=== PATIENT | female | born 1990 | race Hispanic/Latino ===

== ENCOUNTER 2021-09-13 15:48 | Inpatient (IN) | payer MEDICAID, OTHER, SELFPAY ==
[2021-09-15] MEDS ORDERED: Bupivacaine 0.25% HCL 30 ML VIAL ONE (07:00)
[2021-09-15] MEDS: Lactated Ringer's 1,000 ML IV SCH (10:20)
[2021-09-15] MEDS ORDERED: Ibuprofen 800 MG TAB PO PRN (10:28)
[2021-09-15] MEDS ORDERED: Methylergonovine 0.2 MG/ML VIAL IM PRN (10:28)
[2021-09-15] MEDS ORDERED: Acetaminophen 500 MG TAB PO PRN (10:28)
[2021-09-15] MEDS ORDERED: Butorphanol Tartrate 1 MG/ML VIAL SLOW IVP PRN (10:28)
[2021-09-15] MEDS ORDERED: hydrALAZINE 20 MG/ML VIAL SLOW IVP PRN (10:28)
[2021-09-15] MEDS ORDERED: Diphenoxylate HCl/Atropine Tablet PO PRN (10:28)
[2021-09-15] MEDS ORDERED: Misoprostol 200 MCG TAB PR PRN (10:28)
[2021-09-15] MEDS ORDERED: NS w/ Oxytocin 30 units 500 ML IV SCH ×2 (10:28)
[2021-09-15] MEDS ORDERED: HYDROcodone/Acetaminophen 5/325 mg Tablet PO PRN (10:28)
[2021-09-15] MEDS ORDERED: Lidocaine 1% (PF) 30 ML VIAL SC PRN (10:28)
[2021-09-15] MEDS ORDERED: Carboprost 250 MCG/ML AMP IM PRN (10:28)
[2021-09-15] MEDS ORDERED: Ondansetron PF 4 MG/2 ML Vial IVP PRN ×2 (10:28→19:19)
[2021-09-15] MEDS ORDERED: Promethazine HCl 25 MG/ML VIAL IM PRN ×2 (10:28→19:19)
[2021-09-15] MEDS: Misoprostol 100 MCG TAB PO SCH (10:53)
[2021-09-15 11:01] LABS: Hemoglobin 13.1 g/dL (12.0-15.5); Mean Corpuscular HGB CONC 34.6 g/dL (32.0-36.0); Mean Corpuscular Hemoglobin 30.2 pg (27.0-33.0); Mean Corpuscular Volume 87.3 fl (81.6-98.3); Mean Platelet Volume 10.2 fl (7.4-10.4); Platelet Count 185 10x3/uL (150-450); RBC Distribution Width 13.6 % (11.5-14.5); Red Blood Cell (RBC) Count 4.34 10x6/uL (3.90-5.03); White Blood Cell (WBC) Count 7.4 10x3/uL (3.5-10.5)
[2021-09-15 11:33] LABS: Hep B Surf Ag Non-Reactive S/CO (NonReactive); Syphilis Antibody Nonreactive (Nonreactive)
[2021-09-15 11:36] LABS: HBSAg Index 0.19 S/CO (0-0.99)
[2021-09-15 13:16] LABS: SARS-CoV-2 NAA Rapid Test Not Detected (NotDetected)
[2021-09-15] MEDS ORDERED: Fentanyl 2 mcg/Bup 0.1% Cadd 100 ML ONE (17:05)
[2021-09-15 19:04] VITALS: BMI 28.9
[2021-09-15] MEDS ORDERED: ePHEDrine Sulfate 50 MG/10 ML VIAL SLOW IVP PRN (19:19)
[2021-09-15] MEDS ORDERED: Moisturizing Cream (Eucerin) 113 GM JAR TOP PRN (19:19)
[2021-09-15] MEDS ORDERED: Naloxone HCl 0.4 mg/ml Vial IVP PRN ×2 (19:19)
[2021-09-15] MEDS ORDERED: Acetaminophen 325 MG TAB PO PRN (19:19)
[2021-09-15] MEDS ORDERED: diphenhydrAMINE 50 MG/ML VIAL IVP PRN (19:19)
[2021-09-15] MEDS ORDERED: Fentanyl 2 mcg/Bupivacaine 0.1% Cassette 100 ML EPIDURAL SCH (19:30)
[2021-09-15] MEDS ORDERED: Communication Order-Pharmacy FS SCH (19:30)
[2021-09-15] MEDS ORDERED: Lactated Ringer's 500 ML IV PRN (19:31)
[2021-09-16] MEDS ORDERED: Milk Of Magnesia 30 ML UDCUP PO PRN (02:00)
[2021-09-16] MEDS ORDERED: Promethazine HCl 25 MG/ML VIAL IM PRN (02:00)
[2021-09-16] MEDS ORDERED: HYDROcodone/Acetaminophen 5/325 mg Tablet PO PRN (02:00)
[2021-09-16] MEDS ORDERED: Bisacodyl 10 MG SUPP PR PRN (02:00)
[2021-09-16] MEDS ORDERED: Lanolin Ointment 7 GM TUBE TOP PRN (02:00)
[2021-09-16] MEDS ORDERED: diphenhydrAMINE 25 MG CAP PO PRN (02:00)
[2021-09-16] MEDS ORDERED: NS w/ Oxytocin 30 units 500 ML IV SCH (02:00)
[2021-09-16] MEDS ORDERED: Boostrix 0.5 ML (Tdap) VIAL IM ONE (02:00)
[2021-09-16] MEDS ORDERED: hydrALAZINE 20 MG/ML VIAL SLOW IVP PRN (02:00)
[2021-09-16] MEDS ORDERED: Benzocaine-Menthol 82.5 ML CAN TOP PRN (02:00)
[2021-09-16] MEDS ORDERED: Ondansetron PF 4 MG/2 ML Vial IVP PRN (02:00)
[2021-09-16] MEDS: Ibuprofen 800 MG TAB PO SCH ×3 (05:38→21:11)
[2021-09-16] MEDS: Lactated Ringer's 1,000 ML IV SCH (07:38)
[2021-09-16] MEDS: Misoprostol 100 MCG TAB PO SCH (07:38)
[2021-09-16] MEDS: Ferrous Sulfate 325 MG TAB PO SCH ×2 (08:56→16:40)
[2021-09-16] MEDS: Prenatal Vitamin 1 TAB PO SCH (09:11)
[2021-09-16] MEDS: Docusate 100 MG CAP PO SCH ×2 (09:11→21:12)
[2021-09-17] MEDS: Ibuprofen 800 MG TAB PO SCH ×2 (05:17→14:10)
[2021-09-17] MEDS: Ferrous Sulfate 325 MG TAB PO SCH ×2 (07:38→15:54)
[2021-09-17 07:53] VITALS: BP 103/62; TEMP 98
[2021-09-17] MEDS: Prenatal Vitamin 1 TAB PO SCH (08:31)
[2021-09-17] MEDS: Docusate 100 MG CAP PO SCH (08:31)
== END 2021-09-17 17:15 | disposition home or self-care (01) | DRG 807 ==
LOC: CSHLD 09-15 09:20 → CSHPP 09-16 02:19
PROVIDERS: ADMIT Family Medicine; ATTEND Family Medicine
PROC: 10E0XZZ Delivery of Products of Conception, External Approach (ICD-10-PCS; principal; 2021-09-15)
PROC: 10907ZC Drainage of Amniotic Fluid, Therapeutic from Products of Conception, Via Natural or Artificial Opening (ICD-10-PCS; 2021-09-15)
PROC: 3E0P7VZ Introduction of Hormone into Female Reproductive, Via Natural or Artificial Opening (ICD-10-PCS; 2021-09-15)
DX: O80 Encounter for full-term uncomplicated delivery (principal); Z37.0 Single live birth; Z20.822 Contact with and (suspected) exposure to COVID-19; Z3A.39 39 weeks gestation of pregnancy
CPT/HCPCS: 51702; 85027; 86780; 86850; 86900; 86901; 87340; J2590; J7120; S0020; U0002

== ENCOUNTER 2023-08-15 10:28 | Outpatient (CLI) | payer OTHER | END 2023-08-15 10:29 | disposition home or self-care (01) | LOC: CSHULT 10:28 | PROVIDERS: ATTEND Family Medicine | DX: Z34.82 Encounter for supervision of other normal pregnancy, second trimester (principal); Z3A.21 21 weeks gestation of pregnancy | CPT/HCPCS: 76805 ==

== ENCOUNTER 2023-12-12 20:40 | Inpatient (IN) | payer OTHER ==
[~2023-12-12 20:40] MED LIST: Bupivacaine/Epinephrine 0.25% 30 ML VIAL ONE
[2023-12-12 21:45] VITALS: BMI 28.8
[2023-12-12] MEDS ORDERED: Oxytocin 30 units/NS 500 ML 500 ML IV SCH ×2 (22:11)
[2023-12-12] MEDS ORDERED: Ibuprofen 800 MG TAB PO PRN (22:11)
[2023-12-12] MEDS ORDERED: hydrALAZINE 20 MG/ML VIAL SLOW IVP PRN (22:11)
[2023-12-12] MEDS ORDERED: HYDROcodone/Acetaminophen 5/325 mg Tablet PO PRN (22:11)
[2023-12-12] MEDS ORDERED: Ondansetron PF 4 MG/2 ML Vial IVP PRN (22:11)
[2023-12-12] MEDS ORDERED: Lidocaine 1% (PF) 30 ML VIAL SC PRN (22:11)
[2023-12-12] MEDS ORDERED: Diphenoxylate HCl/Atropine Tablet PO PRN (22:11)
[2023-12-12] MEDS ORDERED: Misoprostol 200 MCG TAB PR PRN (22:11)
[2023-12-12] MEDS ORDERED: Promethazine HCl 25 MG/ML VIAL IM PRN (22:11)
[2023-12-12] MEDS ORDERED: Tranexamic Acid 1,000 MG/10 ML VIAL IVP PRN (22:11)
[2023-12-12] MEDS ORDERED: Carboprost 250 MCG/ML AMP IM PRN (22:11)
[2023-12-12] MEDS ORDERED: Acetaminophen 500 MG TAB PO PRN (22:11)
[2023-12-12] MEDS ORDERED: Methylergonovine 0.2 MG/ML VIAL IM PRN (22:11)
[2023-12-12] MEDS ORDERED: fentaNYL 50 mcg/mL 1 mL Vial SLOW IVP PRN (22:11)
[2023-12-12 22:46] LABS: Hematocrit 38.4 % (34.9-44.5); Mean Corpuscular HGB CONC 33.9 g/dL (32.0-36.0); Mean Corpuscular Hemoglobin 28.8 pg (27.0-33.0); Mean Corpuscular Volume 85.1 fL (81.6-98.3); Mean Platelet Volume 10.1 fL (7.4-10.4); Platelet Count 218 10x3/uL (150-450); Red Blood Cell (RBC) Count 4.51 10x6/uL (3.90-5.03); White Blood Cell (WBC) Count 6.4 10x3/uL (3.5-10.5)
[2023-12-12] MEDS: Misoprostol 100 MCG TAB PO SCH (23:04)
[2023-12-12 23:11] LABS: HBsAg Index 0.17 S/CO (0-0.99); Hep B Surf Ag - L&D Non-Reactive S/CO (NonReactive); Syphilis Antibody Nonreactive (Nonreactive); Syphilis Antibody Index 0.14 S/CO (<1.00 Non-Reactive)
[2023-12-12 23:14] LABS: HIV (1/2) Antibody/Antigen Non-Reactive (NonReactive); HIV 1/2 INDEX 0.11 S/CO (<1.00)
[2023-12-13] MEDS: fentaNYL/Ropivacaine Epidural 100 ML ONE (04:39)
[2023-12-13] MEDS: Lactated Ringer's 1,000 ML IV SCH (11:00)
[2023-12-13] MEDS: Oxytocin 30 units/NS 500 ML 500 ML IV SCH (11:03)
[2023-12-13] MEDS ORDERED: Ondansetron PF 4 MG/2 ML Vial IVP PRN (16:44)
[2023-12-13] MEDS ORDERED: Boostrix 0.5 ML (Tdap) VIAL (>/=7 yrs of age) IM ONE (16:44)
[2023-12-13] MEDS ORDERED: diphenhydrAMINE 25 MG CAP PO PRN (16:44)
[2023-12-13] MEDS ORDERED: Bisacodyl 10 MG SUPP PR PRN (16:44)
[2023-12-13] MEDS ORDERED: Milk Of Magnesia 30 ML UDCUP PO PRN (16:44)
[2023-12-13] MEDS ORDERED: Promethazine HCl 25 MG/ML VIAL IM PRN (16:44)
[2023-12-13] MEDS ORDERED: hydrALAZINE 20 MG/ML VIAL SLOW IVP PRN (16:44)
[2023-12-13] MEDS ORDERED: Lanolin Ointment 7 GM TUBE TOP PRN (16:44)
[2023-12-13] MEDS: HYDROcodone/Acetaminophen 5/325 mg Tablet PO PRN (18:03)
[2023-12-13] MEDS: Ibuprofen 800 MG TAB PO SCH (21:28)
[2023-12-13] MEDS: Ferrous Sulfate 325 MG TAB PO SCH (21:28)
[2023-12-13] MEDS: Docusate 100 MG CAP PO SCH (21:28)
[2023-12-14] MEDS: Prenatal Vitamin 1 TAB PO SCH (08:33)
[2023-12-14 11:40] VITALS: BP 105/63; TEMP 98.2
== END 2023-12-14 18:00 | disposition home or self-care (01) | DRG 807 ==
LOC: CSHLD 20:40 → CSHPP 12-13 16:20
PROVIDERS: ADMIT Family Medicine; ATTEND Family Medicine
PROC: 10907ZC Drainage of Amniotic Fluid, Therapeutic from Products of Conception, Via Natural or Artificial Opening (ICD-10-PCS; 2023-12-12)
PROC: 3E0P7VZ Introduction of Hormone into Female Reproductive, Via Natural or Artificial Opening (ICD-10-PCS; 2023-12-12)
PROC: 10E0XZZ Delivery of Products of Conception, External Approach (ICD-10-PCS; principal; 2023-12-13)
PROC: 3E033XZ Introduction of Vasopressor into Peripheral Vein, Percutaneous Approach (ICD-10-PCS; 2023-12-13)
DX: O80 Encounter for full-term uncomplicated delivery (principal); Z37.0 Single live birth; Z3A.39 39 weeks gestation of pregnancy
CPT/HCPCS: 51702; 85027; 86780; 86850; 86900; 86901; 87340; 87389; J2590; J7120